=== PATIENT | male | born 1955 | race Hispanic/Latino ===

== ENCOUNTER 2017-07-01 16:40 | Inpatient (IN) | payer OTHER ==
[2017-07-01] MEDS ORDERED: Sodium Chloride 0.9% 1,000 ML IV ONE (16:57)
[2017-07-01] MEDS ORDERED: guaiFENesin DM 200 mg-20 mg/10 ml UD PO ONE (17:01)
[2017-07-01] MEDS ORDERED: Magnesium Sulfate 1 gm in D5W 1 GM/100 ML BAG IVPB ONE (17:03)
--- NOTE | 2017-07-01 17:06 | ED PDOC ---
Arrival/HPI - General Chief Complaint: Shortness Of Breath Time Seen by Provider: 07/01/17 16:57 Historian: Patient, EMS - History of Present Illness Narrative History of Present Illness (Text): 07/01/17 17:02 61 year old male smoker, with no significant past medical history, who presents to the emergency department via BLS complaining of an acute onset of shortness of breath for ~ a week. Patient notes URI like symptoms at the beginning of the week (i.e worsening coughing/congestion/runny nose) that have worsened over the last 3 days. Patient notes [place] bridge but over the past 3 days found it difficult to, due to severe exertional sob. Patient went shopping today and began experiencing acute shortness of breath. Patient lives at home with a friend but denies any sick contact. Patient denies any fever, chills, sweats, chest pain, abdominal pain, nausea, vomiting, diarrhea, back pain, neck pain, urinary symptoms, headache, dizziness, or any other complaint. pt arrived to ED for further eval. PCP: NONE pt has not seek regular medical care for a while pt is a regular smoker NO flu shoots noted Time/Duration: 1 week Symptom Onset: Gradual Symptom Course: Worsening Activities at Onset: Light Context: Walking (shoping at a local food market) Past Medical History - Provider Review Nursing Documentation Reviewed: Yes - Travel History Have you recently traveled outside [place] w/in the past 3 mons?: No - Past History Past History: Non-Contributing - Infectious Disease Hx of Infectious Diseases: None - Tetanus Immunization Tetanus Immunization: Unknown - Cardiac Hx Cardiac Disorders: No - Pulmonary Hx Respiratory Disorders: No Hx Pneumonia: Yes - Neurological Hx Neurological Disorder: No - HEENT Hx HEENT Disorder: Yes Hx Cataracts: Yes - Renal Hx Renal Disorder: No - Endocrine/Metabolic Hx Endocrine Disorders: No - Hematological/Oncological Hx Blood Disorders: No - Integumentary Hx Dermatological Disorder: No - Musculoskeletal/Rheumatological Hx Musculoskeletal Disorders: Yes Hx Arthritis: Yes - Gastrointestinal Other/Comment: Inguinal hernia - Genitourinary/Gynecological Hx Genitourinary Disorders: No - Psychiatric Hx Psychophysiologic Disorder: No Hx Substance Use: Yes - Surgical History Other/Comment: PILONIDAL CYST BASE OF THE SPINE REMOVED - Anesthesia Hx Anesthesia: No Family/Social History - Physician Review Nursing Documentation Reviewed: Yes Family/Social History: Unknown Family HX Smoking Status: Heavy Smoker > 10 Cigarettes Daily Hx Alcohol Use: Yes Hx Substance Use: Yes Substance used: Marijuana Hx Substance Use Treatment: No Allergies/Home Meds Allergies/Adverse Reactions: Allergies No Known Allergies Allergy (Verified 03/20/15 07:37) Home Medications: Home Meds Medication Instructions Recorded Confirmed No Known Home Med 03/20/15 03/20/15 Review of Systems - Physician Review All systems were reviewed & negative as marked: Yes - Review of Systems Constitutional: Fatigue, Fevers Eyes: Normal ENT: Normal Respiratory: SOB, Cough, Sputum (sporadic, clear sputum) Cardiovascular: Normal. absent: Chest Pain, Palpitations Gastrointestinal: Normal. absent: Abdominal Pain, Stool Changes, Diarrhea, Nausea, Vomiting Genitourinary Male: Normal. absent: Dysuria, Frequency, Hematuria, Urinary Output Changes Musculoskeletal: Normal. absent: Back Pain, Neck Pain Skin: Normal. absent: Rash Neurological: Normal. absent: Headache, Dizziness Endocrine: Normal Hemo/Lymphatic: Normal Psychiatric: Normal Physical Exam Vital Signs Reviewed: Yes Vital Signs Temp Pulse Resp BP Pulse Ox 07/01/17 16:57 20 07/01/17 16:41 97.3 F L 120 H 20 116/77 93 L Temperature: Afebrile Blood Pressure: Normal Pulse: Tachycardic Respiratory Rate: Tachypneic Appearance: Positive for: Uncomfortable, Other (alert/awake, GCS = 15, oriented x 3, cooperative, mild distress due to sob/respiration, uncomfortable, follows command with ease) Pain Distress: None Mental Status: Positive for: Alert and Oriented X 3 - Systems Exam Head: Present: Atraumatic, Normocephalic, Other (mild bi-temporal wasting) Pupils: Present: PERRL, Other (no nystagmus, no photophobia, sclera anicteric, left eye deviated to the left (stribimus is noted); wearing eye glasses) Extroacular Muscles: Present: EOMI Conjunctiva: Present: Normal Ears: Present: Normal Mouth: Present: Dry, Other (poor dentitions, no drooling/stridor, uvula/tongue are midline, no dysphonia, mild dry oral mucosa) Pharnyx: Present: Normal Nose (External): Present: Atraumatic Nose (Internal): Present: Normal Inspection Neck: Present: Normal Range of Motion, Trachea Midline, Other (intact ROM, no midline tenderness, no nuchal rigidity, no step off). No: Meningeal Signs, MIDLINE TENDERNESS, Paraspinal Tenderness, JVD Respiratory/Chest: Present: Respiratory Distress (+ tachypenia), Decreased Breath Sounds (bilaterally), Tachypneic, Other (bi-basiliar wheezing noted, decr breath sounds throughout, no rales/rhonochi, no accessory muscle use noted b/l). No: Rales, Retracting, Rhonchi Cardiovascular: Present: Normal S1, S2, Tachycardic. No: Murmurs Abdomen: Present: Normal Bowel Sounds, Other (well nourished male, no focal tenderness, no vickers's sign, no mcburney's point tenderness, no masses/rebound/ guarding/rigidity). No: Tenderness, Distention, Peritoneal Signs Back: Present: Normal Inspection, Other (intact ROM, no step off, no midline tenderness). No: CVA Tenderness, Midline Tenderness, Paraspinal Tenderness Upper Extremity: Present: Normal Inspection, Normal ROM, NORMAL PULSES, Neurovascularly Intact. No: Cyanosis, Edema Lower Extremity: Present: Normal Inspection, NORMAL PULSES, Normal ROM, Neurovascularly Intact, Capillary Refill < 2 s, Other (intact ROM, no pitting edeman/swelling noted b/l, strength 5/5 grossly intact in all limbs, neurovasc intact b/l). No: Edema, CALF TENDERNESS, Jamaal's Sign Neurological: Present: GCS=15, CN II-XII Intact, Speech Normal Skin: Present: Warm, Dry, Normal Color, Other (cap refill ~ 1sec, no ulcerations , no petechiae, no rashes). No: Rashes Psychiatric: Present: Alert, Oriented x 3 Medical Decision Making ED Course and Treatment: 07/01/17 17:12 Impression: 61 year old male presents to the emergency department complaining of an acute onset of shortness of breath. R/O COPD, r/o CHF, r/o ACS, r/o infectious cause Plan: -- VBG -- EKG -- Labs -- Magnesium, Phosphorous -- Cardiac Enzymes -- Chest X-ray -- Blood Culture -- Rapid Flu -- Urinalysis -- Procalcitonin Serumj -- Duoneb -- Aspirin -- Robitussin -- Magnesium Sulfate -- Sodium Chloride -- SOLU-Medrol -- Reassess and disposition Progress Notes: 07/01/17 17:52 after Neb treatments, pt felt improvement, pt is awaiting CXR results Lung re-eval: coarse breath sounds bibasiliar, more breath sounds noted/more aerations to lung boyd noted, + tachypenic, no accessory muscle use noted, no rales/rhonchi, no wheezing noted given pt's complaints and clinical findings, will recommend pt for admission pt is made aware of his medical results agrees with admission 07/01/17 18:23 DR Olivares, hospitalists [employer] consultant, contacted, made aware, agrees with admission Re-evaluation Time: 18:26 Reassessment Condition: Improving,but remains with symptoms - Critical Care Critical Care Minutes: 45 minutes Critical Care Time: Excluding Proc Time Narrative Critical Care (Text): 07/01/17 17:53 critical care time: 45min, excluding procedure time, excluding time teaching residents/students/mid-level providers; including initial eval/diagnosis, diagnostic interpretation, re-eval, consultations, final disposition - Lab Interpretations Lab Results: 07/01/17 17:12 07/01/17 17:12 Lab Results 07/01/17 17:12: Sodium 132, Chloride 86 L, Potassium 3.9, Carbon Dioxide 33, Anion Gap 17, BUN 11, Creatinine 0.7 L, Est GFR ( Amer) > 60, Est GFR ( Non-Af Amer) > 60, Random Glucose 127 H, Calcium 8.9, Phosphorus 3.4, Magnesium 1.9, Total Bilirubin 0.8, AST 25, ALT 27, Alkaline Phosphatase 86, Troponin I < 0.01, NT-Pro-B Natriuret Pep 516 H, Total Protein 7.3, Albumin 4.0, Globulin 3.3 , Albumin/Globulin Ratio 1.2 07/01/17 17:12: pO2 49, VBG pH 7.42, VBG pCO2 53.0, VBG HCO3 34.4 H, VBG Total CO2 36.0 H, VBG O2 Sat (Calc) 89.3 H, VBG Base Excess 8.2 H, VBG Potassium 3.8, Sodium 131.0 L, Chloride 89.0 L, Glucose 126 H, Lactate 2.5 H, FiO2 21.0, Venous Blood Potassium 3.8 07/01/17 17:12: PT 13.5 H, INR 1.18 H, APTT 31.0 07/01/17 17:12: WBC 15.8 H, RBC 4.77, Hgb 14.6, Hct 42.5, MCV 89.1, MCH 30.6, MCHC 34.4, RDW 12.6, Plt Count 296, MPV 8.4, Gran % 82.1 H, Lymph % (Auto) 11.7 L, [place] % (Auto) 6.0, Eos % (Auto) 0.0 L, Baso % (Auto) 0.2, Gran # 12.95 H, Lymph # (Auto) 1.8, [place] # (Auto) 0.9 H, Eos # (Auto) 0.0, Baso # (Auto) 0.03 07/01/17 17:00: Influenza Typ A,B (EIA) Negative for flu a/b I have reviewed the lab results: Yes Interpretation: Abnormal lab values (elevated lactate, elevated WBCs, borderline elevation of BNP) - RAD Interpretation Narrative RAD Interpretations (Text): 07/01/17 18:31 hyperinflated lungs no infiltrate/effusions noted Radiology Orders: 07/01/17 16:57 CHEST TWO VIEWS (PA/LAT) [RAD] [employer] Handler: ED Physician - EKG Interpretation EKG Interpretation (Text): 07/01/17 17:54 Sinus tach at 115 bpm, LAD, no ectopy, + voltage criteria LVH, peaked Ts noted to V3-5, inverted T in leads R, V1-2, no st changes, ABNL EKG; unchanged compare with old ekg 02/2016 Interpreted by ED Physician: Yes Type: 12 lead EKG Comparison: Similar to previous EKG - Medication Orders Current Medication Orders: Azithromycin (Zithromax 500mg In Ns) 500 mg in 250 mls @ 167 mls/hr IVPB STAT STA PRN Reason: Protocol Stop: 07/01/17 19:18 Discontinued Medications Albuterol/Ipratropium (Duoneb 3 Mg/0.5 Mg (3 Ml) Ud) 3 ml IH Q15M CAPRI Stop: 07/01/17 17:46 Last Admin: 07/01/17 17:34 Dose: 3 ml Aspirin (Aspirin) 325 mg PO STAT STA Stop: 07/01/17 17:03 Last Admin: 07/01/17 17:19 Dose: 325 mg Guaifenesin/Dextromethorphan (Robitussin Dm) 10 ml PO ONCE ONE Stop: 07/01/17 17:02 Last Admin: 07/01/17 17:16 Dose: 10 ml Sodium Chloride (Sodium Chloride 0.9%) 1,000 mls @ 2,000 mls/hr IV .Q30M ONE Stop: 07/01/17 17:26 Last Admin: 07/01/17 17:26 Dose: 2,000 mls/hr eMAR Start Stop Document 07/01/17 17:26 SRE (Rec: 07/01/17 17:27 SRE [id number]) Intravenous Solution Start Date 07/01/17 Start Time 17:15 End Date 07/01/17 End time 19:00 Total Infusion Time 105 Magnesium Sulfate/Dextrose (Magnesium Sulfate 1 Gm/100 Ml D5w) 1 gm in 100 mls @ 100 mls/hr IVPB ONCE ONE Stop: 07/01/17 18:02 Last Admin: 07/01/17 17:18 Dose: 100 mls/hr eMAR Start Stop Document 07/01/17 17:18 SRE (Rec: 07/01/17 17:19 SRE [id number]) Intravenous Solution Start Date 07/01/17 Start Time 17:19 End Date 07/01/17 End time 18:20 Total Infusion Time 61 Ceftriaxone Sodium (Rocephin 1 Gram Ivpb) 1 gm in 100 mls @ 200 mls/hr IVPB STAT STA PRN Reason: Protocol Stop: 07/01/17 18:19 Last Admin: 07/01/17 18:19 Dose: 200 mls/hr eMAR Start Stop Document 07/01/17 18:19 SRE (Rec: 07/01/17 18:20 SRE [id number]) Intravenous Solution Start Date 07/01/17 Start Time 18:20 End Date 07/01/17 End time 19:15 Total Infusion Time 55 Methylprednisolone (Solu-Medrol) 125 mg IVP STAT STA Stop: 07/01/17 17:02 Last Admin: 07/01/17 17:18 Dose: 125 mg IVP Administration Document 07/01/17 17:18 SRE (Rec: 07/01/17 17:18 SRE [id number]) Charges for Administration # of IVP Administrations 1 - Scribe Statement The provider has reviewed the documentation as recorded by the Scribe Christina Mazariegos All medical record entries made by the Scribe were at my direction and personally dictated by me. I have reviewed the chart and agree that the record accurately reflects my personal performance of the history, physical exam, medical decision making, and the department course for this patient. I have also personally directed, reviewed, and agree with the discharge instructions and disposition. Disposition/Present on Arrival - Present on Arrival Any Indicators Present on Arrival: No History of DVT/PE: No History of Uncontrolled Diabetes: No Urinary Catheter: No History of Decub. Ulcer: No History Surgical Site Infection Following: None - Disposition Have Diagnosis and Disposition been Completed?: Yes Diagnosis: COPD with acute exacerbation, Acute bronchitis, Respiratory distress Diagnosis: (Ruled Out): Respiratory disease Disposition: HOSPITALIZED Disposition Time: 18:00 Patient Plan: Admission, Telemetry Patient Problems: Current Active Problems Problem Status Onset COPD with acute exacerbation Acute Acute bronchitis Acute Condition: STABLE Print Language: MOZAMBICAN Referrals: Tawkerskayli Rosario, [Primary Care Provider] - Follow up with primary Forms: [employer] (Slovak)
[2017-07-01] MEDS: Albuterol-Ipratrop 3 mg / 0.5 (3 ml) UD IH SCH ×3 (17:15→17:34)
[2017-07-01 17:22] LABS: BASO # 0.03 K/mm3 (0.0-2.0); BASO % 0.2 % (0.0-3.0); GRAN # 12.95 (1.4-6.5); GRAN % 82.1 % (50.0-68.0); HEMOGLOBIN 14.6 g/dL (14.0-18.0); LYMPH # 1.8 (1.2-3.4); LYMPH % 11.7 % (22.0-35.0); MEAN CELL VOLUME 89.1 fl (80.0-105.0); MEAN CORPUSCULAR HEMOGLOBIN 30.6 pg (25.0-35.0); MEAN CORPUSCULAR HGB CONC 34.4 g/dl (31.0-37.0); MEAN PLATELET VOLUME 8.4 fl (7.0-11.0); MONO # 0.9 (0.1-0.6); RBC 4.77 10^6/uL (3.5-6.1); RED CELL DISTRIBUTION WIDTH 12.6 % (11.5-14.5); WHITE BLOOD COUNT 15.8 10^3/ul (4.5-11.0)
[2017-07-01 17:24] LABS: VENOUS BLOOD GAS BASE EXCESS 8.2 mmol/L (0.0-2.0); VENOUS BLOOD GAS PO2 49 mm/Hg (30-55); VENOUS BLOOD PH 7.42 (7.32-7.43)
[2017-07-01 17:32] LABS: ALB/GLOB RATIO 1.2 (1.1-1.8); ALT/SGPT 27 U/L (7-56); AST/SGOT 25 U/L (17-59); BLOOD UREA NITROGEN 11 mg/dL (7-21); CALCIUM 8.9 mg/dL (8.4-10.5); GFR AFRICAN-AMERICAN > 60; GFR NON-AFRICAN AMERICAN > 60
[2017-07-01 17:33] LABS: INR 1.18 (0.93-1.08); PROTHROMBIN TIME 13.5 SECONDS (9.4-12.5)
[2017-07-01 17:43] LABS: B-TYPE NATRIURETIC PEPTIDE 516 pg/mL (0-450); TROPONIN I < 0.01 ng/mL
[2017-07-01] MEDS ORDERED: Azithromycin 500MG/NS 250ml 500 MG/250 ML BAG IVPB STA (17:49)
[2017-07-01] MEDS ORDERED: cefTRIAXone 1 gm 1 GM/100 ML BAG IVPB STA (17:50)
--- NOTE | 2017-07-01 18:47 | CP.PCM.HP ---
<Rony Barrera - Last Filed: 07/01/17 19:38> History of Present Illness - History of Present Illness History of Present Illness: Subjective: CC: SOB HPI: Patient is a 61 year old male with no significant past medical history who presents to the emergency department for evaluation and treatment of shortness of breath which began 1 week ago. Denies recent travel and sick contacts. Admits to experiencing nonproductive cough, nasal congestion, and runny which have improved since onset. States SOB with exertion has worsened despite OTC medications. He was not able to catch his breath while shopping today. Denies fever, chills, chest pain, abdominal pain, N/V, diarrhea, constipation, and urinary symptoms. 12 point review of systems negative except as indicated in the HPI PMHx: tobacco abuse PSHx: denies Allergies: NDKA Social Hx: denies ETOH use, 1/2 ppd for 40 years, occasional marijuana use Family Hx: father- CAD, [place]; mother- alzhem[place] Medications: no home medications Physical Examination: - Constitutional Appears: Well - Head Exam Head Exam: ATRAUMATIC, NORMAL INSPECTION, NORMOCEPHALIC - Eye Exam Eye Exam: EOMI, Normal appearance, PERRL - ENT Exam ENT Exam: Mucous Membranes Moist, Normal Exam - Neck Exam Neck exam: Positive for: Normal Inspection - Respiratory Exam Respiratory Exam: expiratory wheezing bilateral lung boyd - Cardiovascular Exam Cardiovascular Exam: REGULAR RHYTHM - GI/Abdominal Exam GI & Abdominal Exam: Normal Bowel Sounds, Soft. absent: Tenderness - Extremities Exam Extremities exam: Positive for: normal inspection - Neurological Exam Neurological exam: Alert, awake, orientated x 3, responds to verbal stimuli, moves extremities past midline - Psychiatric Exam Psychiatric exam: Normal Affect, Normal Mood - Skin Skin Exam: Dry, Intact, Normal Color, Warm Assessment and Plan: Patient is a 61 year old male with no significant past medical history who was admitted for evaluation and treatment of shortness of breath. Patient given 2L NS, azithromcyin and rocephin, solumedrol in ED. SIRS Criteria Met - tachycardia + Leukocytosis + elevated lactate - blood cultures ordered and pending - procalcitonin ordered and pending - patient is s/p 2 L NS in ED - IVF NS @ 100cc/hr - abx- azithromycin and rocephin Sinus Tachycardia - D- dimer ordered and pending- rule out PE - no pleurtic pain COPD Exacerbation - xopenex smiley and prn - solumedrol 40 IV q12 - advair on discharge - continue azithromycin and rocephin Tobacco Abuse - smoking cessation advised - nicotine patch prn urge to smoke Prophylaxis: - DVT- SCD - GI- not indicated Case discussed with and plan approved by attending physician. Present on Admission - Present on Admission Any Indicators Present on Admission: No Past Patient History - Infectious Disease Hx of Infectious Diseases: None - Tetanus Immunizations Tetanus Immunization: Unknown - Past Medical History & Family History Past Medical History?: No - Past Social History Smoking Status: Heavy Smoker > 10 Cigarettes Daily - CARDIAC Hx Cardiac Disorders: No - PULMONARY Hx Respiratory Disorders: No Hx Pneumonia: Yes - NEUROLOGICAL Hx Neurological Disorder: No - HEENT Hx HEENT Problems: Yes Hx Cataracts: Yes - RENAL Hx Chronic Kidney Disease: No - ENDOCRINE/METABOLIC Hx Endocrine Disorders: No - HEMATOLOGICAL/ONCOLOGICAL Hx Blood Disorders: No - INTEGUMENTARY Hx Dermatological Problems: No - MUSCULOSKELETAL/RHEUMATOLOGICAL Hx Musculoskeletal Disorders: Yes Hx Arthritis: Yes - GASTROINTESTINAL Other/Comment: Inguinal hernia - GENITOURINARY/GYNECOLOGICAL Hx Genitourinary Disorders: No - PSYCHIATRIC Hx Psychophysiologic Disorder: No Hx Substance Use: Yes - SURGICAL HISTORY Other/Comment: PILONIDAL CYST BASE OF THE SPINE REMOVED - ANESTHESIA Hx Anesthesia: No Meds Allergies/Adverse Reactions: Allergies Allergy/AdvReac Type Severity Reaction Status Date / Time No Known Allergies Allergy Verified 07/01/17 22:29 Results - Vital Signs Recent Vital Signs: Last Vital Signs Temp 97.3 F L 07/01/17 16:41 Pulse 120 H 07/01/17 16:41 Resp 20 07/01/17 16:57 BP 116/77 07/01/17 16:41 Pulse Ox 93 L 07/01/17 16:41 - Labs Result Diagrams: 07/01/17 17:12 07/01/17 17:12 <Nena Guerin - Last Filed: 07/02/17 06:20> Results - Vital Signs Recent Vital Signs: Last Vital Signs Temp 97.8 F 07/02/17 05:51 Pulse 93 H 07/02/17 05:52 Resp 20 07/02/17 05:51 BP 121/66 07/02/17 05:51 Pulse Ox 97 07/02/17 05:51 - Labs Result Diagrams: 07/01/17 17:12 07/01/17 17:12 Labs: Laboratory Results - last 24 hr 07/01/17 07/01/17 20:00 21:15 D-Dimer, Quantitative 602 H pO2 104 H VBG pH 7.44 H VBG pCO2 46.0 VBG HCO3 31.2 H VBG Total CO2 32.6 H VBG O2 Sat (Calc) 99.3 H VBG Base Excess 6.1 H VBG Potassium 3.5 L Sodium 131.0 L Chloride 95.0 L Glucose 195 H Lactate 1.6 FiO2 21.0 Venous Blood Potassium 3.5 L
[2017-07-01] MEDS ORDERED: Levalbuterol 1.25 MG/3 ML Inhal Soln UD IH PRN (19:44)
[2017-07-01] MEDS: Sodium Chloride 0.9% 1,000 ML IV SCH (21:10)
[2017-07-01 21:41] LABS: VENOUS BLOOD GAS BASE EXCESS 6.1 mmol/L (0.0-2.0); VENOUS BLOOD GAS PO2 104 mm/Hg (30-55); VENOUS BLOOD PH 7.44 (7.32-7.43)
[2017-07-01 23:04] VITALS: BMI 18.7
[2017-07-01] MEDS ORDERED: Pneumococcal 23-Valent Vaccine IM ONE (23:04)
[2017-07-02] MEDS ORDERED: Iohexol 350 MG/100 ML VIAL ONE (01:57)
--- NOTE | 2017-07-02 04:13 | CT ---
EXAM: CT Angiography Chest With Intravenous Contrast CLINICAL HISTORY: 61 years old, male; Signs and symptoms; Shortness of breath; Additional info: R/O pe TECHNIQUE: Axial computed tomographic angiography images of the chest with intravenous contrast using pulmonary embolism protocol. All CT scans at this facility use one or more dose reduction techniques, viz.: automated exposure control; ma/kV adjustment per patient size (including targeted exams where dose is matched to indication; i.e. head); or iterative reconstruction technique. MIP reconstructed images were created and reviewed. Coronal and sagittal reformatted images were created and reviewed. CONTRAST: 100 mL of omni 350 administered intravenously. COMPARISON: DX - CHEST TWO VIEWS (PA/LAT) 2017-07-01 18:02 FINDINGS: Pulmonary arteries: No pulmonary embolism. Aorta: Minimal atherosclerotic disease of aorta. No aneurysm. Lungs: Moderate centrilobular emphysematous changes. Mild consolidation within posterior left lower lobe. Scattered nodular and reticulonodular opacities, predominantly left lower lobe. Few subcentimeter cysts vs cavitary lesions within right lower lobe. Pleural space: No significant effusion. No pneumothorax. Heart: No cardiomegaly. No significant pericardial effusion. Bones/joints: Early degenerative changes of spine. Mild curvature of spine. No acute fracture. Soft tissues: Minimal gynecomastia. Lymph nodes: No pathologically enlarged lymph nodes. Gallbladder and bile ducts: Apparent mild gallbladder wall thickening, incompletely imaged. Adrenals: Hypertrophy of adrenal glands. Kidneys and ureters: Mild stranding about kidneys, nonspecific. IMPRESSION: 1. No CT evidence of pulmonary embolism. 2. Probable multifocal pneumonia. Followup to resolution to exclude underlying pathology. 3. Apparent gallbladder wall thickening. Recommend ultrasound. 4. Incidental/non-acute findings are described above.
[2017-07-02] MEDS: Sodium Chloride 0.9% 1,000 ML IV SCH ×3 (06:09→19:30)
[2017-07-02 07:22] LABS: BASO # 0.02 K/mm3 (0.0-2.0); BASO % 0.2 % (0.0-3.0); GRAN # 9.28 (1.4-6.5); GRAN % 89.5 % (50.0-68.0); HEMOGLOBIN 12.9 g/dL (14.0-18.0); LYMPH # 0.6 (1.2-3.4); LYMPH % 6.2 % (22.0-35.0); MEAN CELL VOLUME 89.7 fl (80.0-105.0); MEAN CORPUSCULAR HEMOGLOBIN 29.6 pg (25.0-35.0); MEAN PLATELET VOLUME 8.3 fl (7.0-11.0); MONO # 0.4 (0.1-0.6); MONO % 4.1 % (1.0-6.0); RBC 4.36 10^6/uL (3.5-6.1); RED CELL DISTRIBUTION WIDTH 12.7 % (11.5-14.5); WHITE BLOOD COUNT 10.4 10^3/ul (4.5-11.0)
[2017-07-02 07:41] LABS: ALBUMIN 3.3 g/dL (3.0-4.8); ALT/SGPT 16 U/L (7-56); AST/SGOT 21 U/L (17-59); BLOOD UREA NITROGEN 10 mg/dL (7-21); CALCIUM 8.5 mg/dL (8.4-10.5); GFR AFRICAN-AMERICAN > 60; GFR NON-AFRICAN AMERICAN > 60
[2017-07-02] MEDS: Levalbuterol 1.25 MG/3 ML Inhal Soln UD IH SCH ×3 (08:24→21:10)
--- NOTE | 2017-07-02 09:45 | US ---
HISTORY: abnormal ct COMPARISON: None. TECHNIQUE: Sonographic evaluation of the right upper quadrant of the abdomen. FINDINGS: LIVER: Measures 13.4 cm in length. Normal echogenicity of the liver parenchyma. No mass. No intrahepatic bile duct dilatation. GALLBLADDER: Gallbladder contains a number of gallstones with shadowing. No gallbladder wall thickening was seen. Gallbladder wall measures 2-3 millimeters. No sonographic Diallo's sign was elicited by the technologist. No pericholecystic fluid is seen. COMMON BILE DUCT: Measures 4 mm. No stones. No dilatation. PANCREAS: Visualized pancreas is within normal limits. Tail of the pancreas was obscured by bowel gas. RIGHT KIDNEY: Measures 11.0 cm in length. Right kidney appears to be isoechoic and echotexture to the liver. This may reflect mild medical renal disease. AORTA: No aneurysmal dilatation. IVC: Unremarkable. OTHER FINDINGS: None . IMPRESSION: Cholelithiasis with stone filled gallbladder. No ultrasound evidence of acute cholecystitis.
[2017-07-02 09:54] LABS: PH,URINE 6.5 (4.7-8.0); URINE BILIRUBIN NEGATIVE (NEGATIVE); URINE BLOOD TRACE-INTACT (NEGATIVE); URINE GLUCOSE (UA) NEGATIVE (NEGATIVE); URINE LEUKOCYTE ESTERASE NEGATIVE Leu/uL (NEGATIVE); URINE PROTEIN TRACE mg/dL (<30 mg/dL)
[2017-07-02 09:55] LABS: URINE APPEARANCE SLIGHT-CLOUDY (CLEAR); URINE COLOR YELLOW (YELLOW)
--- NOTE | 2017-07-02 09:57 | RAD ---
HISTORY: cough/sob COMPARISON: 02/05/2016 TECHNIQUE: Chest PA and lateral FINDINGS: LUNGS: There is evidence of a new left lower lobe infiltrate from prior study. This more than likely reflects pneumonia. In addition there is mild subtle new interstitial and reticular changes throughout the lung boyd. Lung boyd are hyperinflated with probable chronic emphysematous changes in the upper lobes. PLEURA: No significant pleural effusion identified. No pneumothorax apparent. CARDIOVASCULAR: Normal. OSSEOUS STRUCTURES: Degenerative changes are seen in the spine without compression fracture. VISUALIZED UPPER ABDOMEN: Normal. OTHER FINDINGS: None. IMPRESSION: New left lower lobe infiltrate from prior study more than likely representing pneumonia. Mild increase in interstitial reticular changes, nonspecific. This represents a discrepancy from the preliminary report provided by the emergency room department. Emergency room physician was informed of the results.
[2017-07-02 10:00] LABS: URINE RBC 0 - 2 /hpf (0-2); URINE WBC 0 - 2 /hpf (0-6)
[2017-07-02] MEDS: MethylPREDNISolone 40 mg Vial IVP SCH ×2 (10:22→22:50)
[2017-07-02] MEDS: cefTRIAXone 1 gm 1 GM/100 ML BAG IVPB SCH (10:22)
--- NOTE | 2017-07-02 12:34 | CP.PCM.PN ---
<Rony Barrera - Last Filed: 07/02/17 12:22> Subjective - Date & Time of Evaluation Date of Evaluation: 07/02/17 Time of Evaluation: 10:00 - Subjective Subjective: Subjective: Patient seen and examined at bedside. Resting comfortably in bed. No acute overnight events. Patient states SOB has significantly improved relative to baseline. Offers no new complaints at this time. Denies fever, chills, chest pain, abdominal pain, nausea, vomiting, diarrhea, constipation, and urinary symptoms. 12-point review of systems negative except as indicated in the HPI Physical Examination: - Constitutional Appears: Well - Head Exam Head Exam: ATRAUMATIC, NORMAL INSPECTION, NORMOCEPHALIC - Eye Exam Eye Exam: EOMI, Normal appearance, PERRL - ENT Exam ENT Exam: Mucous Membranes Moist, Normal Exam - Neck Exam Neck exam: Positive for: Normal Inspection - Respiratory Exam Respiratory Exam: increased expiratory wheezing bilateral lung boyd- likely secondary to increased lung compliance - Cardiovascular Exam Cardiovascular Exam: REGULAR RHYTHM - GI/Abdominal Exam GI & Abdominal Exam: Normal Bowel Sounds, Soft. absent: Tenderness - Extremities Exam Extremities exam: Positive for: normal inspection - Neurological Exam Neurological exam: Alert, awake, orientated x 3, responds to verbal stimuli, moves extremities past midline - Psychiatric Exam Psychiatric exam: Normal Affect, Normal Mood - Skin Skin Exam: Dry, Intact, Normal Color, Warm Assessment and Plan: Patient is a 61 year old male with no significant past medical history who was admitted for evaluation and treatment of shortness of breath. Patient given 2L NS, azithromcyin and rocephin, solumedrol in ED. Sepsis, Pneumonia - tachycardia + Leukocytosis + elevated lactate (cleared) - blood cultures ordered and pending - procalcitonin ordered and pending - patient is s/p 2 L NS in ED - c/w IVF NS @ 100cc/hr - continue abx- azithromycin and rocephin Sinus Tachycardia - D- dimer elevated - CTA reviewed and appreciated- No CT evidence of pulmonary embolism. Probable multifocal pneumonia. Apparent gallbladder wall thickening - no pleurtic pain COPD Exacerbation - xopenex smiley and prn - solumedrol 40 IV q12 - advair on discharge - continue azithromycin and rocephin Tobacco Abuse - smoking cessation advised - nicotine patch prn urge to smoke Prophylaxis: - DVT- SCD - GI- not indicated Case discussed with and plan approved by attending physician. Objective - Vital Signs/Intake and Output Vital Signs (last 24 hours): Temp Pulse Resp BP Pulse Ox 97.8 F 92 H 20 121/66 97 07/02/17 05:51 07/02/17 10:00 07/02/17 05:51 07/02/17 05:51 07/02/17 05:51 Intake and Output: 07/02/17 07/02/17 06:59 18:59 Intake Total 1340 Balance 1340 - Medications Medications: Current Medications Acetaminophen (Tylenol 325mg Tab) 650 mg PO Q4H PRN PRN Reason: Fever >100.4 F Azithromycin (Zithromax) 500 mg PO DAILY SMILEY PRN Reason: Protocol Last Admin: 07/02/17 10:22 Dose: 500 mg Sodium Chloride (Sodium Chloride 0.9%) 1,000 mls @ 100 mls/hr IV .Q10H SMILEY Last Admin: 07/02/17 06:09 Dose: 100 mls/hr Ceftriaxone Sodium (Rocephin 1 Gram Ivpb) 1 gm in 100 mls @ 100 mls/hr IVPB DAILY SMILEY PRN Reason: Protocol Last Admin: 07/02/17 10:22 Dose: 100 mls/hr Levalbuterol HCl (Xopenex) 1.25 mg IH [id number] [facility] Last Admin: 07/02/17 08:24 Dose: 1.25 mg Methylprednisolone (Solu-Medrol) 40 mg IVP Q12 SMILEY Last Admin: 07/02/17 10:22 Dose: 40 mg Nicotine (Nicoderm Cq) 1 patch TD DAILY PRN PRN Reason: URGE TO SMOKE - Labs Labs: 07/02/17 06:30 07/02/17 06:30 PT 13.5 SECONDS (9.4-12.5) H 07/01/17 17:12 INR 1.18 (0.93-1.08) H 07/01/17 17:12 APTT 31.0 Seconds (25.1-36.5) 07/01/17 17:12 <Skip Guerin - Last Filed: 07/02/17 12:50> Objective - Vital Signs/Intake and Output Vital Signs (last 24 hours): Temp Pulse Resp BP Pulse Ox 97.8 F 92 H 20 121/66 97 07/02/17 05:51 07/02/17 10:00 07/02/17 05:51 07/02/17 05:51 07/02/17 05:51 Intake and Output: 07/02/17 07/02/17 06:59 18:59 Intake Total 1340 Balance 1340 - Medications Medications: Current Medications Acetaminophen (Tylenol 325mg Tab) 650 mg PO Q4H PRN PRN Reason: Fever >100.4 F Azithromycin (Zithromax) 500 mg PO DAILY SMILEY PRN Reason: Protocol Last Admin: 07/02/17 10:22 Dose: 500 mg Sodium Chloride (Sodium Chloride 0.9%) 1,000 mls @ 100 mls/hr IV .Q10H SMILEY Last Admin: 07/02/17 06:09 Dose: 100 mls/hr Ceftriaxone Sodium (Rocephin 1 Gram Ivpb) 1 gm in 100 mls @ 100 mls/hr IVPB DAILY SMILEY PRN Reason: Protocol Last Admin: 07/02/17 10:22 Dose: 100 mls/hr Levalbuterol HCl (Xopenex) 1.25 mg IH [id number] SMILEY Last Admin: 07/02/17 08:24 Dose: 1.25 mg Methylprednisolone (Solu-Medrol) 40 mg IVP Q12 SMILEY Last Admin: 07/02/17 10:22 Dose: 40 mg Nicotine (Nicoderm Cq) 1 patch TD DAILY PRN PRN Reason: URGE TO SMOKE - Labs Labs: 07/02/17 06:30 07/02/17 06:30 PT 13.5 SECONDS (9.4-12.5) H 07/01/17 17:12 INR 1.18 (0.93-1.08) H 07/01/17 17:12 APTT 31.0 Seconds (25.1-36.5) 07/01/17 17:12 Attending/Attestation - Attestation I have personally seen and examined this patient.: Yes I have fully participated in the care of the patient.: Yes I have reviewed all pertinent clinical information, including history, physical exam and plan: Yes Notes (Text): I have seen and examined the patient at bedside. Agree with the above note with the following additions/ exceptions: Briefly this is 61 year old male with history of tobacco use and marijuana use who came for evaluation of dyspnea and found to have multi focal pneumonia and COPD exacerbation. Patient feels much better this morning. He continues to have cough and sputum production. Continue xopenex, rocephin, zithro and solumedrol. Procal and cultures are pending. Counselling provided regarding tobacco and marijuana cessation. Patient denies any abdominal pain. GB US revealed stones in the gall bladder however there is no evidence of cholecystitis. Upon discharge patient will follow up with PMD of choice.
[2017-07-02] MEDS ORDERED: DiphenhydrAMINE 50 mg/ml Inj IVP STA (21:58)
--- NOTE | 2017-07-02 22:47 | CARD ---
APPROVED REPORT EKG Measurement Heart [id number] <Conclusion> Sinus tachycardia Possible Left atrial enlargement Left axis deviation Abnormal ECG
[2017-07-02 23:43] VITALS: RESP 20
[2017-07-03 05:52] VITALS: O2SAT 99
[2017-07-03 07:35] LABS: BASO # 0.01 K/mm3 (0.0-2.0); BASO % 0.1 % (0.0-3.0); GRAN # 11.26 (1.4-6.5); GRAN % 86.3 % (50.0-68.0); HEMOGLOBIN 12.2 g/dL (14.0-18.0); LYMPH # 1.4 (1.2-3.4); LYMPH % 10.4 % (22.0-35.0); MEAN CELL VOLUME 90.4 fl (80.0-105.0); MEAN CORPUSCULAR HEMOGLOBIN 29.9 pg (25.0-35.0); MEAN CORPUSCULAR HGB CONC 33.1 g/dl (31.0-37.0); MEAN PLATELET VOLUME 8.3 fl (7.0-11.0); MONO # 0.4 (0.1-0.6); MONO % 3.2 % (1.0-6.0); RBC 4.08 10^6/uL (3.5-6.1); RED CELL DISTRIBUTION WIDTH 12.8 % (11.5-14.5)
[2017-07-03 07:41] LABS: ALBUMIN 3.1 g/dL (3.0-4.8); ALT/SGPT 24 U/L (7-56); AST/SGOT 22 U/L (17-59); BLOOD UREA NITROGEN 12 mg/dL (7-21); CALCIUM 8.6 mg/dL (8.4-10.5); GFR AFRICAN-AMERICAN > 60; GFR NON-AFRICAN AMERICAN > 60
[2017-07-03] MEDS: Levalbuterol 1.25 MG/3 ML Inhal Soln UD IH SCH ×2 (08:06→13:18)
[2017-07-03] MEDS: cefTRIAXone 1 gm 1 GM/100 ML BAG IVPB SCH (09:23)
[2017-07-03] MEDS: MethylPREDNISolone 40 mg Vial IVP SCH (09:24)
--- NOTE | 2017-07-03 10:11 | CP.PCM.DIS ---
<Rony Barrera - Last Filed: 07/03/17 12:09> Provider - Provider Date of Admission: 07/01/17 18:23 Attending physician: Liang Olivares MD Primary care physician: Nitza Profile Required Time Spent in preparation of Discharge (in minutes): 45 Diagnosis - Discharge Diagnosis (1) Pneumonia Status: Acute Priority: Medium (2) Tobacco abuse Status: Chronic Priority: Medium (3) COPD with acute exacerbation Status: Chronic Priority: Medium Hospital Course - Lab Results Lab Results: Most Recent Lab Values WBC 13.0 10^3/ul (4.5-11.0) H D 07/03/17 07:00 RBC 4.08 10^6/uL (3.5-6.1) 07/03/17 07:00 Hgb 12.2 g/dL (14.0-18.0) L 07/03/17 07:00 Hct 36.9 % (42.0-52.0) L 07/03/17 07:00 MCV 90.4 fl (80.0-105.0) 07/03/17 07:00 MCH 29.9 pg (25.0-35.0) 07/03/17 07:00 MCHC 33.1 g/dl (31.0-37.0) 07/03/17 07:00 RDW 12.8 % (11.5-14.5) 07/03/17 07:00 Plt Count 308 10^3/uL (120.0-450.0) 07/03/17 07:00 MPV 8.3 fl (7.0-11.0) 07/03/17 07:00 Gran % 86.3 % (50.0-68.0) H 07/03/17 07:00 Lymph % (Auto) 10.4 % (22.0-35.0) L 07/03/17 07:00 [place] % (Auto) 3.2 % (1.0-6.0) 07/03/17 07:00 Eos % (Auto) 0.0 % (1.5-5.0) L 07/03/17 07:00 Baso % (Auto) 0.1 % (0.0-3.0) 07/03/17 07:00 Gran # 11.26 (1.4-6.5) H 07/03/17 07:00 Lymph # (Auto) 1.4 (1.2-3.4) 07/03/17 07:00 [place] # (Auto) 0.4 (0.1-0.6) 07/03/17 07:00 Eos # (Auto) 0.0 (0.0-0.7) 07/03/17 07:00 Baso # (Auto) 0.01 K/mm3 (0.0-2.0) 07/03/17 07:00 PT 13.5 SECONDS (9.4-12.5) H 07/01/17 17:12 INR 1.18 (0.93-1.08) H 07/01/17 17:12 APTT 31.0 Seconds (25.1-36.5) 07/01/17 17:12 D-Dimer, Quantitative 602 ng/mL (0-243) H 07/01/17 20:00 pO2 104 mm/Hg (30-55) H 07/01/17 21:15 VBG pH 7.44 (7.32-7.43) H 07/01/17 21:15 VBG pCO2 46.0 (40-60) 07/01/17 21:15 VBG HCO3 31.2 mmol/l (21-28) H 07/01/17 21:15 VBG Total CO2 32.6 mmol.L (22-28) H 07/01/17 21:15 VBG O2 Sat (Calc) 99.3 % (40-65) H 07/01/17 21:15 VBG Base Excess 6.1 mmol/L (0.0-2.0) H 07/01/17 21:15 VBG Potassium 3.5 mmol/L (3.6-5.2) L 07/01/17 21:15 Sodium 131.0 mmol/L (132-148) L 07/01/17 21:15 Chloride 95.0 mmol/L (98-107) L 07/01/17 21:15 Glucose 195 mg/dl (75-110) H 07/01/17 21:15 Lactate 1.6 mmol/L (0.7-2.1) 07/01/17 21:15 FiO2 21.0 % 07/01/17 21:15 Sodium 139 mmol/L (132-148) 07/03/17 07:00 Potassium 4.9 mmol/L (3.6-5.0) 07/03/17 07:00 Chloride 98 mmol/L (98-107) 07/03/17 07:00 Carbon Dioxide 34 mmol/L (21-33) H 07/03/17 07:00 Anion Gap 12 (10-20) 07/03/17 07:00 BUN 12 mg/dL (7-21) 07/03/17 07:00 Creatinine 0.6 mg/dl (0.8-1.5) L 07/03/17 07:00 Est GFR ( Amer) > 60 07/03/17 07:00 Est GFR (Non-Af Amer) > 60 07/03/17 07:00 Random Glucose 153 mg/dL (70-110) H 07/03/17 07:00 Calcium 8.6 mg/dL (8.4-10.5) 07/03/17 07:00 Phosphorus 3.4 mg/dL (2.5-4.5) 07/01/17 17:12 Magnesium 1.9 mg/dL (1.7-2.2) 07/01/17 17:12 Total Bilirubin 0.3 mg/dL (0.2-1.3) 07/03/17 07:00 AST 22 U/L (17-59) 07/03/17 07:00 ALT 24 U/L (7-56) 07/03/17 07:00 Alkaline Phosphatase 60 U/L (38-126) 07/03/17 07:00 Troponin I < 0.01 ng/mL 07/01/17 17:12 NT-Pro-B Natriuret Pep 516 pg/mL (0-450) H 07/01/17 17:12 Total Protein 6.2 g/dL (5.8-8.3) 07/03/17 07:00 Albumin 3.1 g/dL (3.0-4.8) 07/03/17 07:00 Globulin 3.1 gm/dL 07/03/17 07:00 Albumin/Globulin Ratio 1.0 (1.1-1.8) L 07/03/17 07:00 Procalcitonin 0.06 NG/ML (0.19-0.49) L 07/01/17 17:12 Venous Blood Potassium 3.5 mmol/L (3.6-5.2) L 07/01/17 21:15 Urine Color Yellow (YELLOW) 07/02/17 09:45 Urine Appearance Slight-cloudy (CLEAR) 07/02/17 09:45 Urine pH 6.5 (4.7-8.0) 07/02/17 09:45 Ur Specific Cosmos 1.010 (1.005-1.035) 07/02/17 09:45 Urine Protein Trace mg/dL (<30 mg/dL) H 07/02/17 09:45 Urine Glucose (UA) Negative mg/dL (NEGATIVE) 07/02/17 09:45 Urine Ketones 40 mg/dL (NEGATIVE) H 07/02/17 09:45 Urine Blood Trace-intact (NEGATIVE) H 07/02/17 09:45 Urine Nitrate Negative (NEGATIVE) 07/02/17 09:45 Urine Bilirubin Negative (NEGATIVE) 07/02/17 09:45 Urine Urobilinogen 1.0 E.U./dL (<1 E.U./dL) H 07/02/17 09:45 Ur Leukocyte Esterase Negative Higinio/uL (NEGATIVE) 07/02/17 09:45 Urine RBC 0 - 2 /hpf (0-2) 07/02/17 09:45 Urine WBC 0 - 2 /hpf (0-6) 07/02/17 09:45 Ur Epithelial Cells None /hpf (0-5) 07/02/17 09:45 Influenza Typ A,B (EIA) Negative for flu a/b (NEGATIVE) 07/01/17 17:00 - Hospital Course Hospital Course: Patient is a 61 year old male with no significant past medical history who was admitted for evaluation and treatment of shortness of breath. With the use of physical examinations, lab work, and imaging the patient was diagnosed with and treated for pneumonia, COPD exacerbation, along with the patients chronic medical conditions. During their hospital stay the patient underwent a chest xray, CT chest, gallbladder ultrasound which were reviewed, appreciated, and utilized in the management of the patients clinical course. Chest x-ray showed a new left lower lobe infiltrate from prior study more than likely representing pneumonia and mild increase in interstitial reticular changes. CT of chest showed no CT evidence of pulmonary embolism, probable multifocal pneumonia, and apparent gallbladder wall thickening. Gallbladder ultrasound showed cholelithiasis with stone filled gallbladder with no ultrasound evidence of acute cholecystitis. Patient was treated with IV fluids, azithromycin, ceftriaxone, IV steroids amongst other empiric/therapeutic medications. At this time the patient is medically stable for discharge. Patient understands and appreciates discharge plan. Patient instructed to follow up with primary care physicians and referrals within three to five days from discharge. Furthermore, the patient is instructed to take medications as prescribed and to return to emergency room for evaluation of intractable headache, fever, chills, dizziness, chest pain, shortness of breath, abdominal pain, nausea, vomiting, diarrhea, constipation, and urinary symptoms. This is a brief summary of the patients hospital course. Please see patient chart for full details. Discharge Exam - Additional Findings Additional findings: - Constitutional Appears: Well - Head Exam Head Exam: ATRAUMATIC, NORMAL INSPECTION, NORMOCEPHALIC - Eye Exam Eye Exam: EOMI, Normal appearance, PERRL - ENT Exam ENT Exam: Mucous Membranes Moist, Normal Exam - Neck Exam Neck exam: Positive for: Normal Inspection - Respiratory Exam Respiratory Exam: increased expiratory wheezing bilateral lung boyd- likely secondary to increased lung compliance - Cardiovascular Exam Cardiovascular Exam: REGULAR RHYTHM - GI/Abdominal Exam GI & Abdominal Exam: Normal Bowel Sounds, Soft. absent: Tenderness - Extremities Exam Extremities exam: Positive for: normal inspection - Neurological Exam Neurological exam: Alert, awake, orientated x 3, responds to verbal stimuli, moves extremities past midline - Psychiatric Exam Psychiatric exam: Normal Affect, Normal Mood - Skin Skin Exam: Dry, Intact, Normal Color, Warm Discharge Plan - Discharge Medications Prescriptions: Fluticasone/Salmeterol 250/50 [Advair Diskus] 1 puff IH Q12 #1 inhaler Methylprednisolone [Medrol Dose Pack (21 tabs)] See Taper PO DAILY #21 mg Albuterol Sulfate [Ventolin Hfa] 1 puff IH Q4H #1 inhaler Azithromycin [Zithromax] 500 mg PO DAILY 3 Days #3 tablet - Follow Up Plan Condition: STABLE Disposition: HOME/ ROUTINE Instructions: Quitting Smoking for Older Adults, Acute Bronchitis, Adult (DC), Respiratory Distress Syndrome, Adult (DC), Exacerbation of COPD (DC) Additional Instructions: Patient Instructions: Take medications as prescribed. Follow up with [facility] [phone] on 07/06/17 at 10 am. Please call to confirm appointment. Follow up with PMD and referrals within three to five days from discharge. Follow up with surgeon within insurance network regarding gallstones. Return to the emergency room for evaluation of intractable headache, fever, chills, dizziness, chest pain, shortness of breath, abdominal pain, nausea, vomiting, diarrhea, constipation, and urinary symptoms. Referrals: [facility], [Non-Staff] - <Liang Olivares - Last Filed: 07/03/17 16:46> Provider - Provider Date of Admission: 07/01/17 18:23 Attending physician: Liang Olivares MD Hospital Course - Lab Results Lab Results: Most Recent Lab Values WBC 13.0 10^3/ul (4.5-11.0) H D 07/03/17 07:00 RBC 4.08 10^6/uL (3.5-6.1) 07/03/17 07:00 Hgb 12.2 g/dL (14.0-18.0) L 07/03/17 07:00 Hct 36.9 % (42.0-52.0) L 07/03/17 07:00 MCV 90.4 fl (80.0-105.0) 07/03/17 07:00 MCH 29.9 pg (25.0-35.0) 07/03/17 07:00 MCHC 33.1 g/dl (31.0-37.0) 07/03/17 07:00 RDW 12.8 % (11.5-14.5) 07/03/17 07:00 Plt Count 308 10^3/uL (120.0-450.0) 07/03/17 07:00 MPV 8.3 fl (7.0-11.0) 07/03/17 07:00 Gran % 86.3 % (50.0-68.0) H 07/03/17 07:00 Lymph % (Auto) 10.4 % (22.0-35.0) L 07/03/17 07:00 [place] % (Auto) 3.2 % (1.0-6.0) 07/03/17 07:00 Eos % (Auto) 0.0 % (1.5-5.0) L 07/03/17 07:00 Baso % (Auto) 0.1 % (0.0-3.0) 07/03/17 07:00 Gran # 11.26 (1.4-6.5) H 07/03/17 07:00 Lymph # (Auto) 1.4 (1.2-3.4) 07/03/17 07:00 [place] # (Auto) 0.4 (0.1-0.6) 07/03/17 07:00 Eos # (Auto) 0.0 (0.0-0.7) 07/03/17 07:00 Baso # (Auto) 0.01 K/mm3 (0.0-2.0) 07/03/17 07:00 PT 13.5 SECONDS (9.4-12.5) H 07/01/17 17:12 INR 1.18 (0.93-1.08) H 07/01/17 17:12 APTT 31.0 Seconds (25.1-36.5) 07/01/17 17:12 D-Dimer, Quantitative 602 ng/mL (0-243) H 07/01/17 20:00 pO2 104 mm/Hg (30-55) H 07/01/17 21:15 VBG pH 7.44 (7.32-7.43) H 07/01/17 21:15 VBG pCO2 46.0 (40-60) 07/01/17 21:15 VBG HCO3 31.2 mmol/l (21-28) H 07/01/17 21:15 VBG Total CO2 32.6 mmol.L (22-28) H 07/01/17 21:15 VBG O2 Sat (Calc) 99.3 % (40-65) H 07/01/17 21:15 VBG Base Excess 6.1 mmol/L (0.0-2.0) H 07/01/17 21:15 VBG Potassium 3.5 mmol/L (3.6-5.2) L 07/01/17 21:15 Sodium 131.0 mmol/L (132-148) L 07/01/17 21:15 Chloride 95.0 mmol/L (98-107) L 07/01/17 21:15 Glucose 195 mg/dl (75-110) H 07/01/17 21:15 Lactate 1.6 mmol/L (0.7-2.1) 07/01/17 21:15 FiO2 21.0 % 07/01/17 21:15 Sodium 139 mmol/L (132-148) 07/03/17 07:00 Potassium 4.9 mmol/L (3.6-5.0) 07/03/17 07:00 Chloride 98 mmol/L (98-107) 07/03/17 07:00 Carbon Dioxide 34 mmol/L (21-33) H 07/03/17 07:00 Anion Gap 12 (10-20) 07/03/17 07:00 BUN 12 mg/dL (7-21) 07/03/17 07:00 Creatinine 0.6 mg/dl (0.8-1.5) L 07/03/17 07:00 Est GFR ( Amer) > 60 07/03/17 07:00 Est GFR (Non-Af Amer) > 60 07/03/17 07:00 Random Glucose 153 mg/dL (70-110) H 07/03/17 07:00 Calcium 8.6 mg/dL (8.4-10.5) 07/03/17 07:00 Phosphorus 3.4 mg/dL (2.5-4.5) 07/01/17 17:12 Magnesium 1.9 mg/dL (1.7-2.2) 07/01/17 17:12 Total Bilirubin 0.3 mg/dL (0.2-1.3) 07/03/17 07:00 AST 22 U/L (17-59) 07/03/17 07:00 ALT 24 U/L (7-56) 07/03/17 07:00 Alkaline Phosphatase 60 U/L (38-126) 07/03/17 07:00 Troponin I < 0.01 ng/mL 07/01/17 17:12 NT-Pro-B Natriuret Pep 516 pg/mL (0-450) H 07/01/17 17:12 Total Protein 6.2 g/dL (5.8-8.3) 07/03/17 07:00 Albumin 3.1 g/dL (3.0-4.8) 07/03/17 07:00 Globulin 3.1 gm/dL 07/03/17 07:00 Albumin/Globulin Ratio 1.0 (1.1-1.8) L 07/03/17 07:00 Procalcitonin 0.06 NG/ML (0.19-0.49) L 07/01/17 17:12 Venous Blood Potassium 3.5 mmol/L (3.6-5.2) L 07/01/17 21:15 Urine Color Yellow (YELLOW) 07/02/17 09:45 Urine Appearance Slight-cloudy (CLEAR) 07/02/17 09:45 Urine pH 6.5 (4.7-8.0) 07/02/17 09:45 Ur Specific [place] 1.010 (1.005-1.035) 07/02/17 09:45 Urine Protein Trace mg/dL (<30 mg/dL) H 07/02/17 09:45 Urine Glucose (UA) Negative mg/dL (NEGATIVE) 07/02/17 09:45 Urine Ketones 40 mg/dL (NEGATIVE) H 07/02/17 09:45 Urine Blood Trace-intact (NEGATIVE) H 07/02/17 09:45 Urine Nitrate Negative (NEGATIVE) 07/02/17 09:45 Urine Bilirubin Negative (NEGATIVE) 07/02/17 09:45 Urine Urobilinogen 1.0 E.U./dL (<1 E.U./dL) H 07/02/17 09:45 Ur Leukocyte Esterase Negative Hig[place]io/uL (NEGATIVE) 07/02/17 09:45 Urine RBC 0 - 2 /hpf (0-2) 07/02/17 09:45 Urine WBC 0 - 2 /hpf (0-6) 07/02/17 09:45 Ur Epithelial Cells None /hpf (0-5) 07/02/17 09:45 IgE 225 kU/L (<kk=613) H 07/02/17 06:30 Influenza Typ A,B (EIA) Negative for flu a/b (NEGATIVE) 07/01/17 17:00 Attending/Attestation - Attestation I have personally seen and examined this patient.: Yes I have fully participated in the care of the patient.: Yes I have reviewed all pertinent clinical information, including history, physical exam and plan: Yes Notes (Text): 07/03/17 16:44 attending note; Patient seen and examined with resident. Patient is a 61 year old male with history of tobacco use and marijuana use who came for evaluation of dyspnea and found to have multi focal pneumonia and COPD exacerbation. Treated with xopenex, rocephin, zithro and solumedrol. pro-calcitonin is negative. Blood culture is negative. Patient is clinically afebrile and nontoxic. Counselling provided regarding tobacco and marijuana cessation. Patient denies any abdominal pain. GB US revealed stones in the gall bladder however there is no evidence of cholecystitis. Upon discharge patient will follow up with PMD of choice/[facility]. Information for follow-up plan.
[2017-07-03] MEDS: Sodium Chloride 0.9% 1,000 ML IV SCH (11:15)
[2017-07-03 12:37] VITALS: BP 131/78; PULSE 79; TEMP 97.8
== END 2017-07-03 17:13 | disposition home or self-care (01) | DRG 88 ==
LOC: ED 16:40 → ERH 18:23 → 2RSO 20:24
PROVIDERS: ADMIT Hospitalist; ATTEND Internal Medicine
DX: J44.1 Chronic obstructive pulmonary disease with (acute) exacerbation (principal); J18.9 Pneumonia, unspecified organism; J44.0 Chronic obstructive pulmonary disease with (acute) lower respiratory infection; F17.210 Nicotine dependence, cigarettes, uncomplicated; K80.20 Calculus of gallbladder without cholecystitis without obstruction; F12.90 Cannabis use, unspecified, uncomplicated